=== PATIENT | female | born 1955 | race Asian ===

== ENCOUNTER 2017-07-05 06:09 | Day surgery (SDC) | payer OTHER ==
[~2017-07-05] VITALS: Ht 160 cm; Wt 52.6 kg
[2017-07-05 06:51] LABS: BASOPHILS % (AUTO) 0.3 % (0.0-2.0); EOSINOPHILS % (AUTO) 0.3 % (0.0-4.0); HEMATOCRIT 39.5 % (36-48); HEMOGLOBIN 13.1 g/dL (12.0-16.0); LYMPHOCYTES # (AUTO) 1.4 K/uL (2.5-16.5); LYMPHOCYTES % (AUTO) 25.8 % (20.5-51.1); MEAN CORPUSCULAR HEMOGLOBIN 30 pg (27-31); MEAN CORPUSCULAR HGB CONC 33 g/dL (33-37); MEAN CORPUSCULAR VOLUME 89.7 fL (80-94); MONOCYTES # (AUTO) 0.3 K/uL (0.8-1.0); MONOCYTES % (AUTO) 5.2 % (1.7-9.3); NEUTROPHILS # (AUTO) 3.7 K/uL (1.8-7.7); NEUTROPHILS % (AUTO) 68.4 % (42.2-75.2); PLATELET COUNT (AUTO) 206 K/uL (140-450); RED CELL DISTRIBUTION WIDTH 13.5 % (11.6-13.7); WHITE BLOOD COUNT (AUTO) 5.4 K/uL (4.8-10.8)
[2017-07-05 07:01] LABS: ANION GAP 10.6 (8-16); CARBON DIOXIDE 29.1 mmol/L (21-32); CREATININE 0.7 mg/dL (0.6-1.3); POTASSIUM 3.7 mmol/L (3.5-5.1)
[2017-07-05 07:04] LABS: ALBUMIN 3.9 g/dL (3.4-5.0); TOTAL BILIRUBIN 0.5 mg/dL (0.0-1.0)
[2017-07-05] MEDS ORDERED: ONDANSETRON 4 MG/2 ML VIAL IVP PRN (07:10)
[2017-07-05] MEDS ORDERED: MORPHINE SULFATE 4 MG/ML SYR IM/IVP PRN (07:10)
[2017-07-05] MEDS ORDERED: ACETAMINOPHEN/CODEINE 300/30MG 1 TAB PO PRN (07:10)
[2017-07-05] MEDS ORDERED: IBUPROFEN 800 MG TAB PO PRN (07:10)
[2017-07-05] MEDS ORDERED: fentaNYL 0.05 MG/ML VIAL ONE (08:07)
[2017-07-05] MEDS ORDERED: ONDANSETRON 4 MG/2 ML VIAL ONE (08:07)
[2017-07-05] MEDS ORDERED: PROPOFOL 200 MG/20 ML VIAL IV ONE (08:07)
[2017-07-05] MEDS ORDERED: SEVOFLURANE 250 ML BTL INH ONE (08:07)
[2017-07-05] MEDS ORDERED: APIX5TAB4 PO (08:16)
[2017-07-05] MEDS ORDERED: FLEC100T1 PO (08:16)
[2017-07-05] MEDS ORDERED: ATOR40TA40 PO (08:16)
== END 2017-07-05 10:23 | disposition home or self-care (01) ==
LOC: MDS 06:09 → MMU 06:13 → MDS 10:23
PROVIDERS: ATTEND Obstetrics & Gynecology
DX: N95.0 Postmenopausal bleeding (principal); N90.89 Other specified noninflammatory disorders of vulva and perineum; E84.9 Cystic fibrosis, unspecified; I63.9 Cerebral infarction, unspecified; I10 Essential (primary) hypertension; Z79.899 Other long term (current) drug therapy; Z98.890 Other specified postprocedural states
CPT/HCPCS: 36415; 56620; 58120; 80053; 85025; 88304; 88305; J2405; J2704; J3010; J7120

== ENCOUNTER 2017-09-15 06:06 | Inpatient (IN) | payer OTHER ==
[~2017-09-15] VITALS: Ht 160 cm; Wt 51.7 kg
[~2017-09-15 06:06] MED LIST: APIX5TAB4 PO; ATOR40TA40 PO; FLEC100T1 PO
[2017-09-15] MEDS ORDERED: BUPIVACAINE-MPF/EPI 0.5% 30 ML VIAL INJ ONE (06:52)
[2017-09-15] MEDS ORDERED: CEFAZOLIN SODIUM 2 GM/D5W PM 50 ML IV SCH (07:15)
[2017-09-15] MEDS ORDERED: DEXAMETHASONE 4 MG/ML VIAL ONE (07:30)
[2017-09-15] MEDS ORDERED: NEOSTIGMINE 1:1000 10 MG/10 ML VIAL ONE (07:30)
[2017-09-15] MEDS ORDERED: SUCCINYLCHOLINE CHLORIDE 200 MG/10 ML VIAL IVP ONE (07:30)
[2017-09-15] MEDS ORDERED: SEVOFLURANE 250 ML BTL INH ONE (07:30)
[2017-09-15] MEDS ORDERED: GLYCOPYRROLATE 0.2 MG/ML VIAL ONE (07:30)
[2017-09-15] MEDS ORDERED: ONDANSETRON 4 MG/2 ML VIAL ONE (07:30)
[2017-09-15] MEDS ORDERED: PROPOFOL 200 MG/20 ML VIAL IV ONE (07:30)
[2017-09-15] MEDS ORDERED: ROCURONIUM 50 MG/5 ML VIAL IV ONE (07:30)
[2017-09-15] MEDS ORDERED: fentaNYL 0.05 MG/ML VIAL ONE (07:38)
[2017-09-15] MEDS ORDERED: MEPERIDINE 50 MG/ML SYR ONE (07:38)
[2017-09-15] MEDS ORDERED: MIDAZOLAM 2 MG/2 ML VIAL ONE (07:38)
[2017-09-15] MEDS: LACTATED RINGERS 1,000 ML IV SCH ×2 (08:02→16:22)
[2017-09-15] MEDS ORDERED: ONDANSETRON 4 MG/2 ML VIAL IVP PRN ×2 (08:05→08:40)
[2017-09-15] MEDS ORDERED: MEPERIDINE 25 MG/ML SYR IVP PRN (08:05)
[2017-09-15] MEDS ORDERED: HYDROmorphone 1 MG/ML AMP IVP PRN (08:05)
--- NOTE | 2017-09-15 08:07 | NUR ---
PATIENT HAS BEEN SCREENED AND CATEGORIZED LOW NUTRITION RISK. PATIENT WILL BE SEEN WITHIN 7 DAYS OF ADMISSION. 09/21/[address]
[2017-09-15] MEDS ORDERED: THROMBIN KIT 20 MU VIAL TP ONE (08:20)
[2017-09-15] MEDS ORDERED: MORPHINE SULFATE 4 MG/ML SYR IM/IVP PRN (08:40)
[2017-09-15 14:00] VITALS: BP 124/64
--- NOTE | 2017-09-15 14:00 | NUR ---
PATIENT BROUGHT TO UNIT VIA BED FROM SURGERY DEPARTMENT. RECEIVED BEDSIDE REPORT FROM RAE ARIZMENDI. PATIENT IS AAOX4, NO SIGNS AND SYMPTOMS OF ACUTE DISTRESS NOTED AT THIS TIME. PATIENT HAS IV TO THE LEFT HAND 20G INFUSING LR. SITE IS CLEAN, DRY, PATENT AND INTACT. HAS DRESSING TO ABDOMINAL INCISION DUE TO TOTAL ABDOMINAL HYSTERECTOMY. DRESSING IS CLEAN, DRY AND INTACT. PATIENT DENIES PAIN. HAS ESPINOSA CATHETER DRAINING TO GRAVITY. ORIENTED PATIENT TO THE ROOM, EXPLAINED CALL LIGHT. SHE VERBALIZED UNDERSTANDING. BED IN LOWEST POSITION, SIDE RIALS UP X2, CALL LIGHT WITHIN REACH. WILL CONTINUE TO MONITOR.
[2017-09-15] MEDS: ACETAMINOPHEN/CODEINE 300/30MG 1 TAB PO PRN (15:29)
--- NOTE | 2017-09-15 15:40 | NUR ---
PATIENT HAS FEVER OF 100.4. WILL APPLY COOLING MEASURES.
--- NOTE | 2017-09-15 16:07 | NUR ---
FAXED INITIAL REVIEW TO [facility] [phone] PHONE [phone] Peacock
--- NOTE | 2017-09-15 19:18 | NUR ---
ENDORSED PATIENT TO POLITICAL THEORY PROFESSOR RN FOR CONTINUITY OF CARE. PATIENT IN STABLE CONDITION.
--- NOTE | 2017-09-15 19:18 | NUR ---
RECEIVED PATIENT LYING ON BED S/P TOTAL ABDOMINAL HYSTERECTOMY. PATIENT AAOX4, WITH F/C IN PLACE. DISCUSSED PLAN OF CARE TO PATIENT. CALL LIGHT WITHIN REACH. NO COMPLAIN OF PAIN AT THIS TIME. CALL LIGHT WITHIN REACH. WILL CONTINUE TO MONITOR.
--- NOTE | 2017-09-15 21:00 | NUR ---
SEEN PATIENT ASLEEP ON BED ON COMFORTABLY POSITION. BED IN LOW POSITION.DENIES PAIN AT THIS TIME. CALL LIGHTS WITHIN REACH. WILL CONTINUE TO MONITOR.
[2017-09-15 22:00] VITALS: BP 119/54
--- NOTE | 2017-09-15 23:25 | NUR ---
SEEN PATIENT ASLEEP ON BED . DENIES PAIN. CALL LIGHT WITHIN REACH. V/S WNL. WILL CONTINUE TO MONITOR.
--- NOTE | 2017-09-15 23:45 | NUR ---
CALLED DR. CLAROS TO F/U THE IV FLUIDS.
[2017-09-16] MEDS: LACTATED RINGERS 1,000 ML IV SCH (00:42)
--- NOTE | 2017-09-16 03:14 | NUR ---
SEEN PATIENT ASLEEP ON BED BUT EASILY AROUSABLE. CALL LIGHT WITHIN REACH. DENIES PAIN AT THIS TIME. WILL CONTINUE TO MONITOR.
[2017-09-16 06:00] VITALS: BP 125/62
--- NOTE | 2017-09-16 06:17 | NUR ---
STILL WAITING FOR DR. CLAROS RESPONSE ABOUT PATIENT CODE,T/O IV.
[2017-09-16 07:10] LABS: BASOPHILS % (AUTO) 0.1 % (0.0-2.0); HEMATOCRIT 32.5 % (36-48); HEMOGLOBIN 10.9 g/dL (12.0-16.0); LYMPHOCYTES # (AUTO) 1.2 K/uL (2.5-16.5); LYMPHOCYTES % (AUTO) 12.5 % (20.5-51.1); MEAN CORPUSCULAR HEMOGLOBIN 30 pg (27-31); MEAN CORPUSCULAR HGB CONC 34 g/dL (33-37); MEAN CORPUSCULAR VOLUME 90.2 fL (80-94); MONOCYTES # (AUTO) 0.7 K/uL (0.8-1.0); MONOCYTES % (AUTO) 7.6 % (1.7-9.3); NEUTROPHILS # (AUTO) 7.6 K/uL (1.8-7.7); NEUTROPHILS % (AUTO) 79.8 % (42.2-75.2); PLATELET COUNT (AUTO) 203 K/uL (140-450); RED CELL DISTRIBUTION WIDTH 13.4 % (11.6-13.7); WHITE BLOOD COUNT (AUTO) 9.5 K/uL (4.8-10.8)
--- NOTE | 2017-09-16 07:16 | NUR ---
ENDORSEMENT GIVEN AT PATIENT BEDSIDE TO AM SHIFT NURSE FOR CONTINUITY OF CARE. CALL LIGHT WITHIN REACH. PATIENT IN STABLE CONDITION
--- NOTE | 2017-09-16 07:22 | NUR ---
RECEIVED PT FROMK IT APPLICATIONS MANAGER NURSEJEAN, PT IS ASLEEP LYING ON THE BED, RESPIRATIONS EVEN, PT HAS AN IV LINE ON THE LEFT HAND G. 20 WITH LACTATED RINGER RUNNING AT KVO 20ML/HR, INTACT AND INFUSING WELL. PT HAS A ESPINOSA CATHETER IN PLACE. SIDE RAILS ARE UP AND CALL LIGHT WITHIN REACH. NO SIGN OF DISTRESS NOTED. WILL CONTINUE TO MONITOR.
[2017-09-16 08:00] VITALS: BP 133/77
--- NOTE | 2017-09-16 09:00 | NUR ---
PT'S ESPINOSA CATHETER WAS DISCONTINUED AND DR. CLAROS WAS INFORMED. PT WAS TOLD TO ASK ASSISTANCE IN GOING TO THE BATHROOM AND THAT PT MUST BE ABLE TO NORMALLY URINATE IN THE BATHROOM.
--- NOTE | 2017-09-16 09:10 | NUR ---
DR. CLAROS CAME TO THE PT'S ROOM AND SPOKE TO THE PT IN BHUTANESE LANGUAGE, PT IS RESPONDING APPROPRIATELY. NO SIGN OF DISTRESS NOTED. WILL MONITOR.
--- NOTE | 2017-09-16 10:30 | NUR ---
PT WAS ASSISTED BY THE STUDENT NURSE AND INSTRUCTOR TO THE BATHROOM TO URINATE. PT WAS ABLE TO VOID, WAS ASSISTED BACK TO BED AND CLEANED UP. NO SIGN OF DISTRESS NOTED. WILL MONITOR.
--- NOTE | 2017-09-16 12:40 | NUR ---
ASSISTED PT TO THE BATHROOM AND PEE AND THEN ASSISTED BACK TO BED AND MADE COMFORTABLE. PT WAS SEATED IN AN UPRIGHT POSITION TO HAVE LUNCH. SISTER IS ON THE BEDSIDE AND IS GIVING FISH SOUP TO THE PT. NO SIGN OF DISTRESS NOTED AND WILL MONITOR.
--- NOTE | 2017-09-16 14:00 | NUR ---
PT IS AWAKE AND TALKING TO HER FAMILY, NO SIGN OF DISTRESS NOTED AND WILL MONITOR.
--- NOTE | 2017-09-16 15:30 | NUR ---
PT 'S SISTER ASKED FOR DR. CLAROS'S CONTACT NO, PT IS AWAKE AND SEATED ON THE BED, DENIES PAIN, WITH FAMILY ON THE BEDSIDE. NO SIGN OF DISTRESS NOTED AND WILL CONTINUE TO MONITOR.
[2017-09-16 16:00] VITALS: BP 131/67
[2017-09-16] MEDS: ACETAMINOPHEN/CODEINE 300/30MG 1 TAB PO PRN (17:32)
--- NOTE | 2017-09-16 17:35 | NUR ---
PT IS ASLEEP AND LYING ON THE BED, RESPIRATIONS EVEN, VITAL SIGNS TAKEN AND TEMPERATURE IS 100.9. WILL MEDICATE PT FOR THE ELEVATED TEMP. NO OTHER UNTOWARD SIGN AND SYMPTOM NOTED. WILL MONITOR.
--- NOTE | 2017-09-16 17:46 | NUR ---
PT IS AWAKE WITH SON ON THE BEDSIDE, TYLENOL GIVEN FOR THE TEMPERATURE OF 100.9, BP IS 131/67 AND PULSE IS 85. PT TOLERATED THE MEDICATION AND WILL MONITOR.
--- NOTE | 2017-09-16 18:42 | NUR ---
PT IS AWAKE AND TALKING TO THE SON, TEMPERATURE WAS CHECKED AGAIN AND IT IS 100.8. WILL ENDORSED TO ENAMEL SPRAYER NURSE, LISA TO MONITOR PT'S TEMPERATURE. NO OTHER UNTOWARD SIGN ANS SYMPTOM NOTED.
--- NOTE | 2017-09-16 19:00 | NUR ---
PT'S SURGICAL INCISION WAS CHECKED, DRY AND NO DRAINAGE, IVAN INTACT, ABDOMINAL BINDER APPLIED. PT WAS ASSISTED TO THE BATHROOM AND BACK TO BED.
--- NOTE | 2017-09-16 19:15 | NUR ---
ENDORSED PT TO HOG RAISER NURSE, LISA, FOR CONTINUITY OF CARE. PT'S TEMPERATURE IS A LITTLE ELEVATED BUT HOG RAISER NURSE WAS TOLD TO MONITOR PT, NO OTHER UNTOWARD SYMPTOM NOTED. PT IS STABLE AT THIS TIME.
--- NOTE | 2017-09-16 19:16 | NUR ---
REPORT RECEIVED FROM AM SHIFT AT BEDSIDE. PT IN STABLE CONDITION. AAOX4. BOARD UPDATED AND INTRODUCED SELF TO PT AND FAMILY. IV SITE PATENT AND INTACT. SKIN WARM, DRY, AND NOT INTACT DUE TO SURGICAL INCISIONS. EDUCATED TO SPLINT IF NEEDING TO COUGH TO NOT REOPEN SURGICAL INCISION. BED LOCKED IN LOW POSITION. CALL MEDRANO WITHIN REACH. WILL CONTINUE TO MONITOR.
--- NOTE | 2017-09-16 22:15 | NUR ---
PT SLEEPING COMFORTABLY IN BED NO S/S OF DISTRESS. AM SHIFT ENDORSED PT HAVING A TEMPERATURE. TEMPERATURE RECHECKED AND IT IS AT 99.6. WILL CONTINUE TO MONITOR. PT DENIES ANY PAIN.
--- NOTE | 2017-09-16 23:45 | NUR ---
PT NEEDED TO VOID. DC IV AND SCD'S. RECONNECTED UPON RETURNING TO BED.
[2017-09-17] VITALS: BP 130/67
--- NOTE | 2017-09-17 02:10 | NUR ---
SURGICAL WOUNDS INTACT. NO DRAINAGE OR ODOR. ABDOMINAL BINDER INTACT. WILL CONTINUE TO MONITOR.
--- NOTE | 2017-09-17 04:20 | NUR ---
RECEIVED REPORT OF PT FROM LISA.PT IS IN STABLE CONDITION W.O ANY DISTRESS.
--- NOTE | 2017-09-17 06:30 | NUR ---
DR OROZCO CAME AND VISITED PT.HE SAID WILL D/C PT TOMORROW.NO C/O PAIN OR DISCOMFORT WHOLE NIGHT.
--- NOTE | 2017-09-17 07:20 | NUR ---
RECEIVED PT FROM NIGHT CHARGE NURSERAUL, PT IS AWAKE AND LYING ON THE BED, WITH A LEFT HAND G.[address], SIDE RAILS ARE UP AND CALL LIGHT WITHIN REACH. PLAN OF CARE WAS DISCUSSED AND PT VERBALIZED UNDERSTANDING. NO SIGN OF DISTRESS NOTED AND WILL MONITOR.
--- NOTE | 2017-09-17 07:40 | NUR ---
PT IS AWAKE AND ASSISTED TO THE BATHROOM TO PEE AND ASSISTED BACK TO BED, PT WAS CLEANED AND GOWN WAS CHANGED, AND MADE COMFORTABLE. NO SIGN OF DISTRESS NOTED AND WILL MONITOR.
[2017-09-17 08:00] VITALS: BP 136/70
--- NOTE | 2017-09-17 09:00 | NUR ---
PT WAS AWAKE AND SEATED ON THE CHAIR WITH SISTER ON THE BEDSIDE. NO SIGN OF DISTRESS NOTED AND WILL MONITOR.
--- NOTE | 2017-09-17 13:15 | NUR ---
PT'S SURGICAL INCISION WAS CHECKED AND DRESSING WAS CHANGED, NO DRAINAGE NOTED AND IVAN ARE INTACT. PT TEACHING ON INFECTION PREVENTION AND FOLLOW UP TO MD GIVEN TO PT AND PT VERBALIZED UNDERSTANDING.
--- NOTE | 2017-09-17 15:50 | NUR ---
PT IS AWAKE AND SEATED ON THE CHAIR,VITAL SIGNS TAKEN AND IS STABLE. NO SIGN OF DISTRESS NOTED AND WILL MONITOR
[2017-09-17 16:00] VITALS: BP 118/65
--- NOTE | 2017-09-17 18:48 | NUR ---
SURGICAL INCISION CHECKED AND DRESSING IS DRY AND INTACT.
--- NOTE | 2017-09-17 19:30 | NUR ---
RECEIVED REPORT FROM DAY SHIFT NURSE AT BEDSIDE. PT IN STABLE CONDITION. IV ACCESS IN L HAND 20G, SALINE LOCKED. IV IS PATENT. PT IS A/OX4. ABDOMINAL DRESSING DRY AND INTACT. PT HAS NO COMPLAINTS OF PAIN AT THIS TIME. BED IN LOW POSITION, LOCKED AND SIDE RAILS ARE UP. BOARD UPDATED. WILL CONTINUE TO MONITOR.
--- NOTE | 2017-09-17 19:30 | NUR ---
ENDORSED PT TO C4 PLANNER NURSE, KATHERINE FOR CONTINUITY OF CARE. PT IS STABLE AT THIS TIME.
--- NOTE | 2017-09-17 21:12 | NUR ---
PT RESTING IN BED COMFORTABLY. ALL NEEDS ARE MET AT THIS TIME. WILL CONTINUE TO MONITOR.
--- NOTE | 2017-09-17 23:47 | NUR ---
PT VS WITHIN NORMAL LIMITS. PT RESTING COMFORTABLY IN BED. NO S/SX OF DISTRESS. WILL CONTINUE TO MONITOR.
[2017-09-18] VITALS: BP 118/71
--- NOTE | 2017-09-18 01:50 | NUR ---
NO CHANGE IN CONDITION. PT IN STABKLE CONDITION. NO S/SX OF DISTRESS. WILL CONTINUE TO MONITOR.
--- NOTE | 2017-09-18 04:00 | NUR ---
PT IS AWAKE AND RESTING IN BED. PT HAS NO COMPLAINTS AT THIS TIME. WILL CONTINUE TO MONITOR.
--- NOTE | 2017-09-18 05:50 | NUR ---
PT RESTING COMFORTABLY. ALL NEEDS ARE MET AT THIS TIME. WILL CONTINUE TO MONITOR.
--- NOTE | 2017-09-18 07:18 | NUR ---
ENDORSED PT TO DAY SHIFT NURSE FOR CONTINUITY OF CARE AT BEDSIDE. PT IN STABLE CONDITION.
--- NOTE | 2017-09-18 07:19 | NUR ---
RECEIVED REPORT FROM OPTIMIZATION ANALYST NURSE JOSEPH AT BEDSIDE FOR CONTINUITY OF CARE. PT IS AWAKE AND ORIENTED X4. INTRODUCED SELF AND UPDATED BOARD. LUNG SOUNDS CLEAR ON AUSCULTATION. O2 SAT 96% ON RA. NO SOB, NO COUGH. IV TO L HAND 20G SL. PT DENIES PAIN. WITH ABD INCISION. DRESSING DRY AND INTACT. NO SIGNS OF DISTRESS. CALL LIGHT WITHIN REACH. BED IN LOW POSITION. WILL CONTINUE TO MONITOR.
[2017-09-18 08:00] VITALS: BP 127/73
--- NOTE | 2017-09-18 08:37 | NUR ---
DR. Brian CLAROS CAME IN AND SPOKE WITH PT. WILL D/C PT TODAY
--- NOTE | 2017-09-18 14:00 | NUR ---
CHANGED ABD DRESSING. SURGICAL INCISIONS WITH IVAN INTACT. NO DRAINAGE, NO ODOR. NO TENDERNESS NOTED. PT DENIES PAIN. INSTRUCTED PT ON KEEPING INCISION CLEAN AND DRY WHEN SHE GOES HOME. VERBALIZED UNDERSTANDING.
--- NOTE | 2017-09-18 15:13 | NUR ---
GAVE PT D/C FORMS, INSTRUCTIONS, LABS, AND FOLLOW UP APPOINTMENT. PT VERBALIZED UNDERSTANDING AND SIGNED FORMS. REMOVED IV TO L HAND 20G. IV CATHETER TIP INTACT. APPLIED DRESSING AND PRESSURE TO SITE. NO BLEEDING NOTED. PT STATED SHE IS WAITING FOR HER SISTER TO COME AND PICK HER UP.
[2017-09-18 16:00] VITALS: BP 126/70
--- NOTE | 2017-09-18 17:45 | NUR ---
PT D/C TO GO HOME. LEFT WITH ALL PERSONAL BELONGINGS AND FORMS. REMOVED ID BAND. PT LEFT UNIT VIA AMBULATION. PICKED UP BY SISTER. FOLLOW UP WAS DISCUSSED WITH SISTER. VERBALIZED UNDERSTANDING. PT LEFT IN STABLE CONDITION.
== END 2017-09-18 17:45 | disposition home or self-care (01) | DRG 741 ==
LOC: MMU 06:06 → MTU 13:50
PROVIDERS: ADMIT Obstetrics & Gynecology; ATTEND Obstetrics & Gynecology
PROC: 0UT70ZZ Resection of Bilateral Fallopian Tubes, Open Approach (ICD-10-PCS; 2017-09-15)
PROC: 0UT20ZZ Resection of Bilateral Ovaries, Open Approach (ICD-10-PCS; 2017-09-15)
PROC: 0UT90ZZ Resection of Uterus, Open Approach (ICD-10-PCS; principal; 2017-09-15 07:30)
DX: C54.1 Malignant neoplasm of endometrium (principal)
CPT/HCPCS: 36415; 71045; 85025; 86886; 86900; 86901; 87081; J0330; J0690; J1100; J2175; J2250; J2405; J2704; J2710; J3010; J3490; J7120